=== PATIENT | female | born 1980 | race Asian ===

== ENCOUNTER → 2023-05-19 09:22 | Outpatient (REF) | payer OTHER, SELFPAY | LOC: WDC 09:22 | PROVIDERS: ATTENDING PHYSICIAN Family Medicine | DX: Z12.31 Encounter for screening mammogram for malignant neoplasm of breast (principal) | CPT/HCPCS: 77063; 77067; 93005 ==

== ENCOUNTER 2023-06-14 22:54 | Emergency (ER) | payer OTHER, SELFPAY ==
[2023-06-14 22:59] VITALS: BP 115/80
--- NOTE | 2023-06-14 23:25 | ED.GENMED ---
History of Present Illness
General
Chief Complaint: Chest Pain
Time Seen by Provider: 06/14/23 23:04
Travel History
Have you had any contact with someone who has COVID-19?: No
Do you have any symptoms of coronavirus? Fever > 100 degrees, chills, cough, shortness of breath, sore throat, loss of taste or smell, muscle aches, or headache?: No
History of Present Illness
History of Present Illness:
43-year-old female presents to the emergency department for evaluation of epigastric/lower chest discomfort beginning earlier today. Pain is worse with movement or when taking a deep breath. Denies any associated fevers or chills, denies any
recent coughing or URI symptoms. No shortness of breath or leg swelling. No recent international travel. Denies any black or bloody stools.
Past History
Past History
ED Past Medical History: None
ED Past Surgical History: None
Social History
Tobacco: Non-smoker
Personal:
Living: with family
Employment: Employed
Review of Systems
Review of Systems
Allergies reviewed?: Yes
Constitutional: Reports no symptoms
Phy Exam
Physical Exam
Physical Exam:
GEN: Appears somewhat pale and uncomfortable, no immediate distress
Eyes: PERRLA, EOMs intact, no scleral icterus
HENT: NCAT, oral mucosa moist
Lungs: CTAB, no wheezes, rales, rhonchi, normal chest wall excursion
Cardiac: RRR, no M/R/G, no peripheral edema. Radial pulses 2+ bilat. chest pain is reproducible on exam
Abdomen: S, NT, ND, NABS, no masses or hepatosplenomegaly
Neuro: AO x 3
MSK: No gross deformity or ecchymosis. No edema. No digital clubbing
Skin: No rashes, petechiae. Normal color, no pallor or jaundice.
Psych: Calm, cooperative, proper hygiene
Scores
Heart Score for Chest Pain Patients
STEMI patient?: Not applicable
Course
Orders/Labs/Results
Orders:
Orders
06/14/23 23:21
Electrocardiogram (*1) Urgent
Reason for Study: Chest Pain
Cardiac Monitoring- Treatment ONCE
EKG- Treatment ONCE
IV Insert/Care/Rem.- Treatment PRN
06/14/23 23:24
Ketorolac [Toradol] 15 mg IV NOW STA
06/14/23 23:28
Complete Blood Count/With Diff Urgent
Comprehensive Metabolic Panel Urgent
Ferritin Urgent
Comment: ADDED
Iron Urgent
Comment: ADDED
Lipase Urgent
Total Iron Binding Urgent
Comment: ADDED
Troponin I Urgent
06/15/23 00:32
Type+Screen Urgent
06/15/23 00:38
Add On- LAB Urgent
Tests Added?: iron, TIBC, ferritin
06/15/23 14:00
Ferric Gluconate [Ferrlecit] 125 mg 0.9% Sodium Chloride 100 ml [Nss] 100 ml IV ONCE@1400
Abnormal Lab Results
06/14/23
23:28
RBC 3.49 L 10^6/uL
(4.20-5.40)
Hgb 6.8 L* g/dL
(12.0-16.0)
Hct 23.5 L %
(37.0-47.0)
MCV 67.3 L fL
(81.0-99.0)
MCH 19.5 L pg
(27.0-31.0)
MCHC 28.9 L g/dL
(33.0-37.0)
RDW 18.3 H %
(11.5-14.5)
Sodium 134 L mmol/L
(135-145)
Creatinine 0.3 L mg/dL
(0.6-1.0)
Iron 35 L ug/dl
(37-170)
% Saturation 8 L %
(20-50)
Ferritin 3.6 L ng/ml
(6.24-137)
06/14/23 23:28
06/14/23 23:28
Vital Signs
Initial and Last Documented VS:
Initial Vital Signs
Temp Pulse Resp BP Pulse Ox
98.0 F 75 16 115/80 100
06/14/23 22:59 06/14/23 22:59 06/14/23 22:59 06/14/23 22:59 06/14/23 22:59
Last Documented Vital Signs
Temp Pulse Resp BP Pulse Ox
98.0 F 69 17 118/73 100
06/14/23 22:59 06/14/23 23:33 06/14/23 23:33 06/14/23 23:33 06/14/23 23:33
MDM/Problems Addressed
MDM/Problems Addressed:
Patient's cardiac workup is reassuring, her chest pain is reproducible on exam and improved/resolved after Toradol administration. Patient does have a history of iron deficiency anemia but has been several years since she received iron infusions.
She showed me outpatient labs on her phone portal and had a hemoglobin of 7.3 approximately 6 weeks ago. She declines rectal exam and declines blood transfusion in the emergency department. She did consent to IV iron infusion. She is advised that
1 iron infusion is not sufficient and she will require further outpatient iron infusions. She will follow-up with her primary care physician for this
*Critical Care Note
Total Time (30-74mins, 75-104mins- exclusive of procedures): Not Applicable
ED Attending Note
-
Portions of this chart may have been created with voice recognition software.� Occasional wrong word or��sound alike� substitutions may have occurred due to the inherent limitations of voice recognition software.
Discharge Plan
Departure
Patient Disposition: Home (Routine Discharge)
Date of Disposition: 06/15/23
Time of Disposition: 02:43
Patient with high blood pressure during this ER visit?: No
Discharge Problem:
Iron deficiency anemia
Instructions: Anemia Caused by Low Iron, Adult (DC)
Prescriptions:
No Action
No Current Medications
0
Referrals:
Aggie Ferro DO [Family Provider] -
Activity Restrictions/Additional Instructions:
Follow-up with your primary care physician soon as possible for further discussion of your iron deficiency as you will need further iron infusions
Interventions
Interventions:
*Risk Screen - Suicide Last Done: 06/14/23 22:59
*General Assessment Last Done: 06/14/23 23:38
*Neglect/Abuse Screening Last Done: 06/14/23 22:59
ED- Fall Risk Assessment Last Done: 06/14/23 23:38
*ED COVID-19 Vaccine History Last Done: 06/14/23 22:59
ED- Cardiac Assessment Last Done: 06/14/23 23:20
Discharge Date and Time
Print Language: TURKISH
[2023-06-14 23:33] VITALS: BP 118/73
[2023-06-14 23:38] VITALS: BMI 21.4
[2023-06-14 23:44] LABS: % Basophils 0.4 % (0-2); % Eosinophils 1.4 % (0-6); % Immature Granulocytes 0.3 % (0-0.5); % Lymphocytes 27.5 % (20.5-51.1); % Monocytes 8.2 % (1.7-9.3); % Neutrophils 62.2 % (42.2-75.2); Absolute Eosinophils 0.1 10^3/uL (0-0.7); Absolute Monocytes 0.6 10^3/uL (0.1-0.6); Absolute Neutrophils 4.5 10^3/uL (1.4-6.5); Hematocrit 23.5 % (37.0-47.0); Mean Corp Hgb Conc. 28.9 g/dL (33.0-37.0); Mean Corpuscular Hgb 19.5 pg (27.0-31.0); Mean Corpuscular Volume 67.3 fL (81.0-99.0); Nucleated Red Blood Cells % 0 %; Platelet Count 252 10^3/uL (130-400); Red Blood Cell Count 3.49 10^6/uL (4.20-5.40); Red Cell Dist. Width 18.3 % (11.5-14.5); White Blood Cell Count 7.3 10^3/uL (4.8-10.8)
[2023-06-14 23:46] LABS: Hemoglobin 6.8 g/dL (12.0-16.0)
[2023-06-14] MEDS: TORADOL 15 MG IV (23:48)
[2023-06-15] VITALS: BP 107/79
[2023-06-15 00:08] LABS: ALT (SGPT) 15 U/L (0-35); AST (SGOT) 21 U/L (14-36); Albumin 4.5 g/dl (3.5-5.0); Alkaline Phosphatase 46 U/L (38-126); Blood Urea Nitrogen 13 mg/dl (7-17); Calcium 8.9 mg/dl (8.4-10.2); Carbon Dioxide 23 mmol/L (22-30); Chloride 104 mmol/L (98-107); Estimated Creatinine Clearance 87 ml/min; Glucose 98 mg/dl (70-99); Lipase 66 U/L (23-300); Potassium 3.9 mmol/L (3.5-5.1); Sodium 134 mmol/L (135-145); Total Bilirubin 0.2 mg/dl (0.2-1.3); Total Protein 7.8 g/dl (6.3-8.2); eGFR > 60.00
[2023-06-15 00:12] LABS: Troponin I < 0.012 ng/ml
[2023-06-15 01:00] VITALS: BP 104/76
[2023-06-15 01:15] LABS: Iron 35 ug/dl (37-170)
[2023-06-15 01:25] LABS: Percent Saturation 8 % (20-50); Total Iron Binding Capacity 411 ug/dl (265-497)
[2023-06-15] MEDS: FERRLECIT 110 MG IV (01:51)
[2023-06-15 02:17] LABS: Ferritin 3.6 ng/ml (6.24-137)
[2023-06-15 03:01] VITALS: BP 95/76
== END 2023-06-15 03:00 | disposition home or self-care (01) ==
LOC: EMR 22:54
PROVIDERS: Physician Assistant; EMERGENCY PHYSICIAN Emergency Medicine; FAMILY PHYSICIAN Family Medicine
DX: D50.9 Iron deficiency anemia, unspecified (principal)
CPT/HCPCS: 99285; 96374; 96375; 80053; 82728; 83540; 83550; 83690; 84484; 85025; 86850; 86900; 86901; 93005; J2916